=== PATIENT | male | born 1995 | race American Indian/Alaskan Native ===

== ENCOUNTER 2019-06-21 10:21 | Emergency (ER) | payer SELFPAY ==
[2019-06-21 10:28] VITALS: BP 148/80
--- NOTE | 2019-06-21 16:09 | Emergency Department Report ---
Chief Complaint: Nausea/Vomiting/Diarrhea Stated Complaint: POISIONING Time Seen by Provider: 06/21/19 16:00 - HPI History of Present Illness: -year-old -[place] male patient without significant past medical history presents for evaluation to return to work today. Patient states 2 days ago he had vomiting and diarrhea after eating at a [place] buffet. He states his symptoms resolved after 1 day and he denies any abdominal pain, hematemesis/coffee-ground emesis, melena/hematochezia, fever/chills/sweats/body aches, cough, shortness of breath, or other symptoms. Patient states that his job told him he is unable to return to work until he is ruled out for having coronavirus. - Exam Vital Signs: Vital Signs 06/21/19 10:24 Temperature 98.1 F Pulse Rate 55 L Respiratory 18 Rate Blood Pressure 148/80 O2 Sat by Pulse 98 Oximetry MSE screening note: Focused history and physical exam performed. Due to findings the following was ordered: ED Medical Decision Making - Medical Decision Making Patient does not present with an emergency condition. He does not have any symptoms associated with coronavirus, has not had any travel outside the [place], and denies contact with any sick contacts or contacts who have known travel outside of the [place]. Patient is stable to return to work. His symptoms were likely due to food poisoning and have fully resolved. Strict return precautions were discussed in detail with patient who verbalizes understanding. ED Disposition for MSE Clinical Impression: Return to work evaluation Disposition: Z- MED SCREENING EXAM-LEFT Is pt being admited?: No Condition: Stable Instructions: Food Poisoning (ED) Referrals: PRIMARY CARE,MD [Primary Care Provider] - as needed Forms: Work/School Release Form(ED) ED General adult EXAM - General General appearance: alert, in no apparent distress Limitations: No Limitations - Head Head exam: Positive: atraumatic, normocephalic - Respiratory Respiratory exam: Positive: normal lung sounds bilaterally. Negative: respiratory distress - Cardiovascular Cardiovascular Exam: Positive: regular rate, normal rhythm - GI/Abdominal GI/Abdominal exam: Positive: soft, normal bowel sounds. Negative: distended, tenderness, guarding, rebound, rigid - Neurological Neurological exam: Positive: alert, oriented X3, normal gait - Psychiatric Psychiatric exam: Positive: normal affect, normal mood
== END 2019-06-21 16:52 | disposition left against medical advice (07) ==
LOC: ED 10:21
DX: R19.7 Diarrhea, unspecified (principal); R11.10 Vomiting, unspecified; Z02.79 Encounter for issue of other medical certificate
CPT/HCPCS: 99282